=== PATIENT | male | born 1975 | race Caucasian/White ===

== ENCOUNTER 2021-08-31 13:44 | Outpatient (REF) | payer OTHER, SELFPAY ==
[2021-08-31 14:59] LABS: Influenza A PCR NEGATIVE (Negative); Influenza B PCR NEGATIVE (Negative); Resp Syncy Virus RNA Qual PCR NEGATIVE (Negative); SARS COV2 PCR INHOUSE POSITIVE (Negative)
== END 2021-08-31 13:45 | disposition home or self-care (01) ==
LOC: HO.LNP 13:44
PROVIDERS: Visit Provider Nurse Practitioner Family
DX: J02.9 Acute pharyngitis, unspecified (principal); Z20.822 Contact with and (suspected) exposure to COVID-19
CPT/HCPCS: 0241U; 87071